=== PATIENT | female | born 1990 | race Caucasian/White ===

== ENCOUNTER 2016-10-11 12:28 | Emergency (ER) | payer OTHER, SELFPAY ==
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
== END 2016-10-11 16:43 | disposition disaster alternative care site (69) ==
LOC: GACC 12:28
DX: M54.2 Cervicalgia (principal); F32.9 Major depressive disorder, single episode, unspecified; Z98.890 Other specified postprocedural states; V89.2XXA Person injured in unspecified motor-vehicle accident, traffic, initial encounter; Y92.410 Unspecified street and highway as the place of occurrence of the external cause
CPT/HCPCS: J1170; J7030